=== PATIENT | female | born 1990 | race African-American/Black ===

== ENCOUNTER 2016-08-10 08:50 | Emergency (ER) | payer OTHER ==
[2016-08-10 09:00] VITALS: BP 150/86
[2016-08-10] MEDS ORDERED: BICILLIN L-A IM ONE (10:17)
[2016-08-10] MEDS ORDERED: BICILLIN L-A ONE (10:24)
--- NOTE | 2016-08-10 10:35 | PROVIDER DOCUMENTATION ---
[facility]-EENT General - General Source: patient - History of Present Illness-EENT General EENT Location: reports: throat Quality of Pain: reports: other (sore) Severity: reports: mild, moderate Onset/Duration: reports: abrupt, other (6 weeks) Timing: reports: still present Prearrival Treatment: Initiated over the counter meds, Initiated prescription meds (Pt had antibiotics in the previous 6 weeks for these exact symptoms.) Associated Symptoms: reports: cough, nasal congestion/drainage, sore throat. denies: fever, malaise, poor fluid intake, poor solids intake Locality of Occurance: School Recently seen or treated by another doctor?: Yes (3 times in previous 6 weeks in this ED.) - Throat/Dental Throat/Dental Problem Symptoms: reports: sore throat <Mary Escobar - Last Filed: 08/10/16 10:29> <Carmine Lay - Last Filed: 08/17/16 13:48> - General Chief Complaint: Sore Throat Stated Complaint: SORE THROAT Time Seen by Provider: 08/10/16 08:56 Allergies/Adverse Reactions: Patient Allergies Allergy/AdvReac Type Severity Reaction Status Date / Time No Known Allergies Allergy Verified 07/28/16 12:37 Home Medications: Home Medication List Medication Instructions Recorded Confirmed Last Taken Type Fluconazole [Diflucan] 150 mg PO DAILY #2 tablet 08/10/16 Unknown Rx - History of Present Illness-[facility] General Nature of Presenting Problem: 25 yo AAF presents to ED with cc of sore throat persisting for 6 weeks. Pt states she has been treated multiple times in this timeframe and that her throat continues to hurt. She reports antibiotic treatment. Pt states she gets frequent strep throat (6 episodes a year for past 6 years). Pt denies fever, headache, abdominal pain, chills, and body aches. Pt reports cough and some congestion. Pt also reports vaginal discharge and discomfort, not necessarily related to cc. Upon arrival to ED, pt appears well and is in no apparent distress. (Mary Escobar) Review of Systems - Adult - REVIEW OF SYSTEMS - ADULT Constitutional: reports: no symptoms reported. denies: chills, fever Eyes: reports: no symptoms reported. denies: blurred vision, double vision Ears, Nose, Mouth & Throat: reports: throat pain Cardiovascular: reports: no symptoms reported. denies: chest pain, palpitations Respiratory: reports: cough Gastrointestinal: reports: no symptoms reported. denies: abdominal pain, nausea Genitourinary: reports: discharge, other (itching and pain in vulvular/vaginal region) Musculoskeletal: reports: no symptoms reported. denies: bone pain, frequent leg cramps Integumentary: reports: no symptoms reported. denies: hives, nail changes Neurological: reports: no symptoms reported. denies: headache/migraines, numbness Psychiatric: reports: no symptoms reported. denies: anxiety, depression Endocrine: reports: no symptoms reported. denies: cold intolerance, heat intolerance Hematologic/Lymphatic: reports: no symptoms reported. denies: blood clots, low blood count Allergic/Immunologic: reports: no symptoms reported. denies: allergic rhinitis , eczema All Other Systems: Reviewed and Negative <Mary Escobar - Last Filed: 08/10/16 10:29> - REVIEW OF SYSTEMS - ADULT Constitutional: reports: no symptoms reported Eyes: reports: no symptoms reported Ears, Nose, Mouth & Throat: reports: see HPI, throat pain <Carmine Lay - Last Filed: 08/17/16 13:48> Past History - Adult - PAST MEDICAL HISTORY-ADULT Review of Records: reports: Old Records Reviewed, Nursing Assessment Review, Medications Reviewed Major Childhood Illnesses: reports: denies history Cardiovascular: reports: denies history Respiratory: reports: asthma Gastrointestinal: reports: denies history Obstetrical/Gynecological: reports: denies history Genitourinary: reports: denies history Musculoskeletal: reports: denies history Neurological: reports: denies history Endocrine/Immune: reports: Sickle Cell disease Other Conditions: reports: denies history - PRIOR SURGERIES/PROCEDURES Surgical/Procedure History: reports: - PRIOR HOSPITALIZATIONS Prior Hospitalizations: reports: none - IMMUNIZATION STATUS Childhood Immunizations: See Nurse Assessment Flu Vaccine: See Nurse Assessment - FAMILY HISTORY Family History: reviewed, not pertinent - SOCIAL HISTORY Smoking: quit less than 1 year, cigarettes <Mary Escobar - Last Filed: 08/10/16 10:29> - PAST MEDICAL HISTORY-ADULT Review of Records: reports: Old Records Reviewed, Nursing Assessment Review Cardiovascular: reports: denies history Respiratory: reports: denies history Gastrointestinal: reports: denies history <Lay,Wenli X - Last Filed: 08/17/16 13:48> Physical Exam- EENT - Physical Exam EENT Initial Vital Signs Reviewed: Yes General Appearance: appears well, alert, no apparent distress Eye Exam: bilateral eye: normal inspection, PERRL, EOMI Ear Exam: bilateral ear: auricle normal, canal normal, TM normal Nasal Exam: normal inspection Throat Exam: pharynx normal Neck: non-tender, full range of motion, supple Respiratory: chest non-tender, lungs clear, normal breath sounds Cardiovascular: normal peripheral pulses, regular rate, rhythm Abdominal Exam: normal bowel sounds, non tender, soft Lymphatic: no adenopathy Back Exam: normal inspection, no vertebral tenderness Extremity: normal range of motion, non-tender, normal gait Integumentary: normal color, normal turgor, warm/dry Neurologic: grossly normal, no motor/sensory deficits Psych/Mental Status: normal mood/affect, normal thought content, normal thought process, oriented x 3 <Mary Escobar - Last Filed: 08/10/16 10:29> - Physical Exam EENT Initial Vital Signs Reviewed: Yes General Appearance: appears well, alert, no apparent distress <Carmine Lay X - Last Filed: 08/17/16 13:48> Progress <Mary Escobar - Last Filed: 08/10/16 10:29> <Carmine Lay X - Last Filed: 08/17/16 13:48> - PLAN OF CARE/RESULTS Progress/Plan/Lab Results: Vital Signs - 24 hr 08/10/16 08:57 Temperature 97.9 F Pulse Rate 91 H Respiratory 18 Rate Blood Pressure 150/86 O2 Sat by Pulse 100 Oximetry Orders Category Date Time Status strep [DIRECT STREP PL] Stat Lab 08/10/16 09:40 Completed Penicillin G Benzathine [Bicillin l-A] Med 08/10/16 10:24 Discontinued 2,400,000 unit .ROUTE .STK-MED ONE Penicillin G Benzathine [Bicillin l-A] Med 08/10/16 10:17 Discontinued 2,400,000 unit IM NOW ONE Laboratory Tests 08/10/16 09:40 Group A Strep Rapid NEGATIVE (Mary Escobar) Departure <Mary Escobar - Last Filed: 08/10/16 10:29> - Departure Time of Disposition Order: 10:50 Certified Medical Emergency: Emergent <Carmine Lay Lionel - Last Filed: 08/17/16 13:48> - Departure DIAGNOSIS: Pharyngitis Qualifiers: Pharyngitis/tonsillitis etiology: other specified organisms Qualified Code(s): J02.8 - Acute pharyngitis due to other specified organisms Disposition: HOME 01 Condition: Stable Additional Instructions: Follow up with Dr. Adhikari, ENT, [facility] for further management. Return to ER as needed. Prescriptions: Fluconazole [Diflucan] 150 mg PO DAILY #2 tablet Referrals: Elsy Adhikari MD [STAFF PHYSICIAN] - Wm Lobo MD [Primary Care Provider] - Forms: Return to School/Parent Work Instructions: Fluconazole tablets, Pharyngitis, [id number] Attestation - Scribe Verification/Attestation Scribe:: Mary Escobar Acting as Scribe for:: Carmine Lay Scribe documention review:: This chart was documented by a scribe and accurately reflects the service the provider performed and the decisions made by the provider. - Physician/ PAT Attestation Patient care was provided by Advanced Practice Provider:: No <Mary Escobar - Last Filed: 08/10/16 10:29> Physician Attestation
== END 2016-08-10 10:50 | disposition home or self-care (01) ==
LOC: P.ED 08:50
DX: J02.9 Acute pharyngitis, unspecified (principal); R05 Cough; R09.81 Nasal congestion; L29.2 Pruritus vulvae; D57.1 Sickle-cell disease without crisis
CPT/HCPCS: 87081; 87430; 96372; J0561